=== PATIENT | male | born 1990 | race Caucasian/White ===

== ENCOUNTER 2022-02-19 04:36 | Emergency (ER) | payer BC ==
[~2022-02-19] VITALS: Ht 172.7 cm; Wt 68.0 kg
[2022-02-19 05:06] VITALS: BP_SYST 137
[2022-02-19] MEDS ORDERED: ACETAMINOPHEN 500 MG TABLET PO ONE (05:15)
--- NOTE | 2022-02-19 05:15 | NUR ---
First contact. Female present at bedside. Pt reports abdominal pain and vomiting since last night.
--- NOTE | 2022-02-19 05:21 | NUR ---
Pt receiving x-ray at this time.
[2022-02-19 05:34] LABS: BASOPHILS % (AUTO) 0.3 % (0.0-2.0); EOSINOPHILS # (AUTO) 0.1 K/uL (0.0-0.4); EOSINOPHILS % (AUTO) 0.7 % (0.0-4.0); HEMOGLOBIN 13.4 g/dL (14.0-18.0); LYMPHOCYTES # (AUTO) 2.2 K/uL (1.0-5.5); LYMPHOCYTES % (AUTO) 18.5 % (20.5-51.5); MEAN CORPUSCULAR HEMOGLOBIN 29 pg (27-31); MEAN CORPUSCULAR HGB CONC 34 % (32-36); MEAN CORPUSCULAR VOLUME 85 fL (79.0-98.0); MONOCYTES # (AUTO) 0.7 K/uL (0.0-1.0); MONOCYTES % (AUTO) 6.2 % (1.7-9.3); NEUTROPHILS % (AUTO) 74.3 % (40.0-70.0); PLATELET COUNT (AUTO) 269 K/uL (130-430); RED CELL DISTRIBUTION WIDTH 13.5 % (9.0-15.0); WHITE BLOOD COUNT (AUTO) 12.1 K/uL (4.8-10.8)
[2022-02-19 05:41] LABS: ALBUMIN 4.2 g/dL (3.4-4.8); CALCIUM 8.7 mg/dL (8.4-11.0); CREATININE 1.11 mg/dL (0.55-1.30); POTASSIUM 3.2 mmol/L (3.5-5.1); TOTAL BILIRUBIN 0.5 mg/dL (0.0-1.0)
[2022-02-19] MEDS ORDERED: ONDANSETRON 4 MG ODT TAB PO ONE (06:45)
[2022-02-19] MEDS ORDERED: ONDA-8 TL (06:45)
[2022-02-19] MEDS ORDERED: IBUPROFEN 800 MG TABLET PO ONE (06:45)
[2022-02-19] MEDS ORDERED: cephALEXin 500 MG CAPSULE PO ONE (06:45)
[2022-02-19] MEDS ORDERED: CEPH-548 PO (06:45)
[2022-02-19 07:04] LABS: BILIRUBIN,URINE NEGATIVE (NEGATIVE); BLOOD, URINE NEGATIVE (NEGATIVE); CLARITY/URINE CLEAR (CLEAR); COLOR,URINE YELLOW (YELLOW); GLUCOSE,URINE NEGATIVE (NEGATIVE); KETONES,URINE 2+ (NEGATIVE); LEUKOCYTE ESTERASE ,URINE NEGATIVE (NEGATIVE); NITRITE, URINE NEGATIVE (NEGATIVE); PH,URINE 6.5 (5.0-8.0); PROTEIN URINE NEGATIVE (NEGATIVE); UROBILINOGEN,URINE 0.2 (0.2-1.0)
--- NOTE | 2022-02-19 07:15 | NUR ---
ER at bedside examining patient.
--- NOTE | 2022-02-19 07:30 | NUR ---
Assumed care of pt. Pt is in bed resting with no s/s of distress. Family member at bedside. Pt is A&ox4. States has abdominal pain 2/10 non-radiating. Skin intact. IV intact with no infiltration noted. NKA. VSS. Bed in lowest position.
[2022-02-19] MEDS ORDERED: METO-290 PO (07:40)
[2022-02-19] MEDS ORDERED: OMEP20CA15 PO (07:40)
--- NOTE | 2022-02-19 08:02 | NUR ---
Patient given written and verbal discharge instructions and verbalizes understanding. ER MD discussed with patient the results and treatment provided. Patient in stable condition. ID arm band removed. IV catheter removed intact and dressing applied, no active bleeding. Rx of Metoclopramide & Omeprazole given. Patient educated on pain management and to follow up with PMD. Pain Scale 0/10. Opportunity for questions provided and answered. Medication side effect fact sheet provided.
[2022-02-19 08:05] VITALS: BP_SYST 134
== END 2022-02-19 08:05 | disposition home or self-care (01) ==
LOC: SED 04:36
DX: R10.10 Upper abdominal pain, unspecified (principal); Z79.899 Other long term (current) drug therapy; Z88.1 Allergy status to other antibiotic agents
CPT/HCPCS: 36415; 74018; 80053; 81003; 83690; 85025; 99284